=== PATIENT | male | born 1985 | race Two or more races ===

== ENCOUNTER 2017-02-21 07:14 | Emergency (ER) | payer OTHER ==
[2017-02-21 08:04] VITALS: BP 122/71; PULSE 90; TEMP 98.4; BMI 35.6
--- NOTE | 2017-02-21 08:34 | PDOC ---
History of Present Illness - General Chief Complaint: Pain Stated Complaint: RASH/FEVER/STOMACH PAIN Time Seen by Provider: 02/21/17 08:24 History Source: Patient - History of Present Illness Initial Comments: 02/21/17 11:10 Patient is a 31 y.o. male with a PMH of epilepsy (s/p R temporal lesion removal ; last seizure 2015) and asthma who presents with a 2 day h/o localized epigastric cramping abdominal pain with associated nausea but no vomiting, diarrhea/constipation. Patient denies any exacerbation/relief with PO intake but notes decreased appetite 2/2 to the pain. Patient also endorse some viral URI symptoms including sore throat and chills. Patient also c/o of multiple hyperpigmented/erythematous macules that are non-tender on his B/L UE and torso. Patient states the macules initially appeared last week and were relieved with Benadryl however they reappeared yesterday. Past History - Past Medical History Allergies/Adverse Reactions: Allergies Allergy/AdvReac Type Severity Reaction Status Date / Time shellfish derived Allergy Verified 02/21/17 07:42 Home Medications: Ambulatory Orders NK [No Known Home Medication] 02/21/17 Asthma: Yes COPD: No Seizures: Yes - Immunization History Immunization Up to Date: No - Suicide/Smoking/Psychosocial Hx Smoking Status: No Smoking History: Never smoked Have you smoked in the past 12 months: No Number of Cigarettes Smoked Daily: 0 Information on smoking cessation initiated: No Hx Alcohol Use: No Drug/Substance Use Hx: No Substance Use Type: Marijuana Hx Substance Use Treatment: No Review of Systems - Review of Systems Constitutional: Yes: Chills. No: Fever Respiratory: No: Shortness of Breath Cardiac (ROS): No: Chest Pain ABD/GI: Yes: Nausea. No: Constipated, Diarrhea, Vomiting : No: Burning, Dysuria All Other Systems: Reviewed and Negative *Physical Exam - Vital Signs Last Vital Signs Temp Pulse Resp BP Pulse Ox 98.4 F 90 16 122/71 97 02/21/17 07:43 02/21/17 07:43 02/21/17 07:43 02/21/17 07:43 02/21/17 07:43 - Physical Exam General Appearance: Yes: Nourished, Obese HEENT: positive: EOMI, CHERYL Neck: positive: Trachea midline, Supple Respiratory/Chest: positive: Lungs Clear Cardiovascular: positive: S1, S2 Gastrointestinal/Abdominal: positive: Normal Bowel Sounds, Soft. negative: Distended, Guarding, Rebound, Tenderness, Hernia, Mass Extremity: positive: Normal Capillary Refill, Normal Inspection Integumentary: positive: Normal Color, Dry, Warm Neurologic: positive: Fully Oriented, Alert ED Treatment Course - LABORATORY CBC & Chemistry Diagram: 02/21/17 09:10 02/21/17 09:10 Medical Decision Making - Medical Decision Making 02/21/17 11:13 Patient is a 31 y.o. male who presents to the ED c/o intermittent cramping epigastric pain. On PE patient is hemodynamically stable and non-toxic appearing. Clinical suspicion for biliary disease. Will obtain RUQ U/S to r/o cholecystitis and GI cocktail for pain. Reassess. 02/21/17 19:14 RUQ negative for acute cholecystitis but shows some fatty liver. Will give patient copy of CT scan with instruction to f/u with PCP and return precautions. Patient hemodynamically stable, tolerating PO intake and affirms understanding of discharge instructions. *DC/Admit/Observation/Transfer Diagnosis at time of Disposition: Viral gastritis - Discharge Dispostion Disposition: HOME Condition at time of disposition: Good Admit: No - Referrals - Patient Instructions Printed Discharge Instructions: DI for Gastritis Additional Instructions: Please follow up with your primary care physician for your abdominal pain. Return to the Emergency Department for any new/worsening/concerning symptoms. - Post Discharge Activity Forms/Work/School Notes: Back to Work
--- NOTE | 2017-02-21 08:52 | PDOC ---
Attending Attestation - Resident Resident Name: PabloAixa - ED Attending Attestation I have performed the following: I have examined & evaluated the patient, The case was reviewed & discussed with the resident, I agree w/resident's findings & plan, Exceptions are as noted - HPI HPI: 02/21/17 08:51 31y M pmhx seizure (sp L temporal lobe resection) presenst with complaint of sharp epgiastric pain for the past 2-3 days - seems to come for seconds, and gets better if he stretches - it is sharp, nonradiation, pt endorses mild nausea , without any vomiting, fever/chills - doesnot seem to get worse with dayo dintake though pt states he has not been eating much recently due to feeling under the weather with URI sypmtoms. pt also notes that he occasionally has these hyperpigmented/eruythemadous macules that show up on his arm/torso, back last week, took benadryl with resolution but a few days ago they popped up again. pt denies any fever/chills, these are not painful, they are not itchy. on exam pt is well appearing in no idstress cardiac exam: rrr, no m/r/g pulm: cta general: weall appearing, in no distress abd: soft nontender, neg murphies, no rebound/guarding ext: no pitting edmema noted. skin: occasional bruise noted on his wrist/arm, back, no signs of petiquei ddx epigsatric pain - gall stones, pancreatitis, consider acs - will obtain screening ekg, gastritis will treat with pepcid/maalox, will obtain gb US will ck lbas to r/o hematologic disease for his rash - Physicial Exam PE: 02/22/17 07:45 see above - Medical Decision Making 02/21/17 11:59 labs reviewed US shows no gall stones, +fatty liver will dc with pmd fu suspect his pain is musuclar in nature in setting of his mild cough Heart Score/ECG Review - ECG Impressions Comment:: 02/21/17 17:17 Twelve-lead EKG was performed and reviewed by me. There is normal sinus rhythm with a normal rate. Rate of 72 The axis is normal. The intervals are normal. There is normal R wave progression There are no ST or T wave abnormalities. Impression: Normal twelve-lead EKG
[2017-02-21 09:25] LABS: BASO % 0.6 % (0-2.0); EOS % 0.4 % (0-4.5); HEMATOCRIT 43.9 % (35.4-49); HEMOGLOBIN 14.5 GM/dL (11.7-16.9); LYMPH % 24.1 % (8-40); MCH 27.6 pg (25.7-33.7); MEAN CELL VOLUME 83.6 fl (80-96); MEAN PLT VOLUME 9.5 fl (7.5-11.1); MONO % 11.9 % (3.8-10.2); PLATELET COUNT 157 K/MM3 (134-434); RBC 5.25 M/mm3 (4.00-5.60); RDW 14.4 % (11.9-15.9); WHITE BLOOD COUNT 5.7 K/mm3 (4.0-10.0)
[2017-02-21] MEDS ORDERED: MAG HYDROX/AL HYDROX/SIMETH 355 ML ORAL.SUSP PO ONE (09:29)
[2017-02-21] MEDS ORDERED: FAMOTIDINE 20 MG/50 ML IVPB 20 MG in PREMIX 50 IVPB ONE (09:30)
[2017-02-21 09:55] LABS: ALBUMIN 3.9 g/dl (3.4-5.0); ANION GAP 9 (8-16); BILIRUBIN,TOTAL 0.7 mg/dL (0.2-1.0); BLOOD UREA NITROGEN 12 mg/dL (7-18); CALCIUM 8.1 mg/dL (8.5-10.1); CHLORIDE 106 mmol/L (98-107); CO2 23 mmol/L (21-32); CREATININE 0.8 mg/dL (0.7-1.3); GLUCOSE,RANDOM 102 mg/dL (74-106); LIPASE 86 U/L (73-393); POTASSIUM 3.8 mmol/L (3.5-5.1); SGOT/AST 40 U/L (15-37); SGPT/ALT 32 U/L (12-78); SODIUM 138 mmol/L (136-145); TOT PROT 7.6 g/dl (6.4-8.2)
[2017-02-21 09:57] LABS: ALK PHOS 69 U/L (45-117)
[2017-02-21] MEDS ORDERED: MAG HYDROX/AL HYDROX/SIMETH 30 ML UNIT-DOSE CUP ONE (11:29)
[2017-02-21] MEDS ORDERED: FAMOTIDINE 20 MG/50 ML IVPB 20 MG/50 ML MG IVPB ONE (11:30)
[2017-02-21] MEDS ORDERED: RANITIDINE HCL 150 MG TABLET (FP) PO ONE (11:34)
[2017-02-21] MEDS ORDERED: RANITIDINE HCL 150 MG TABLET (FP) ONE (11:35)
[2017-02-21] MEDS ORDERED: KETOROLAC TROMETHAMINE 60 MG/2 ML VIAL IM ONE (11:58)
--- NOTE | 2017-02-21 16:35 | EKG ---
Test Reason : Blood Pressure : / mmHG Vent. Rate : 072 BPM Atrial Rate : 072 BPM P-R Int : 130 ms QRS Dur : 086 ms QT Int : 404 ms P-R-T Axes : 043 068 035 degrees QTc Int : 442 ms NORMAL SINUS RHYTHM WITH SINUS ARRHYTHMIA NORMAL ECG WHEN COMPARED WITH ECG OF 18-MAY-2014 07:49, NO SIGNIFICANT CHANGE WAS FOUND BASELINE ARTIFACT Confirmed by ESTEFANY WALTON, CASSIE ([id number]) on 02/21/2017 4:35:16 PM Referred By: Confirmed By:CASSIE ALLISON MD
== END 2017-02-21 12:55 | disposition home or self-care (01) ==
LOC: JER 07:14
DX: K29.00 Acute gastritis without bleeding (principal); Z86.69 Personal history of other diseases of the nervous system and sense organs; R21 Rash and other nonspecific skin eruption
CPT/HCPCS: 36415; 76705-TC; 80053; 83690; 84484; 85025; 93005; 93010; 99282-25

== ENCOUNTER 2018-11-12 21:41 | Emergency (ER) | payer OTHER ==
[2018-11-12 22:05] VITALS: BP 199/94; PULSE 88; TEMP 99.6; BMI 35.6
[2018-11-12] MEDS ORDERED: IBUPROFEN 400 MG TABLET (FP) PO ONE ×2 (22:27→22:31)
--- NOTE | 2018-11-12 22:44 | PDOC ---
History of Present Illness - General Chief Complaint: Injury Stated Complaint: FALL Time Seen by Provider: 11/12/18 22:06 History Source: Patient Exam Limitations: Clinical Condition - History of Present Illness Initial Comments: 11/12/18 22:38 Patient with no significant past medical history presented with complaint of right lateral ankle and midfoot pain and swelling status post twisting ankle while playing basketball 2 hours ago. Patient reported he was trying to shoot a basket and twisted his right ankle. Reports increased pain to right ankle and foot with ambulation. Denies fall hitting head or loss of consciousness. Denies any other symptoms Occurred: reports: this evening Past History - Past Medical History Allergies/Adverse Reactions: Allergies Allergy/AdvReac Type Severity Reaction Status Date / Time shellfish derived Allergy Verified 02/21/17 07:42 Home Medications: Ambulatory Orders Ibuprofen 800 mg PO Q8H PRN #20 tablet 11/12/18 Asthma: Yes COPD: No Seizures: Yes - Immunization History Immunization Up to Date: No - Psycho Social/Smoking Cessation Hx Smoking Status: No Smoking History: Never smoked Have you smoked in the past 12 months: No Number of Cigarettes Smoked Daily: 0 Hx Alcohol Use: No Drug/Substance Use Hx: No Substance Use Type: Marijuana Hx Substance Use Treatment: No Review of Systems - Review of Systems Able to Perform ROS?: Yes Is the patient limited [place]er proficient: No Constitutional: No: Malaise, Weakness HEENTM: No: Symptoms Reported Respiratory: No: Symptoms reported Cardiac (ROS): No: Symptoms Reported ABD/GI: No: Symptoms Reported Musculoskeletal: Yes: Symptoms Reported, See HPI, Joint Swelling (right ankle), Muscle Pain (lateral aspect of right ankle) Integumentary: Yes: Symptoms Reported, Other (swelling to right midfoot) Neurological: No: Numbness, Paresthesia, Tingling All Other Systems: Reviewed and Negative *Physical Exam - Vital Signs Last Vital Signs Temp Pulse Resp BP Pulse Ox 99.6 F 88 18 199/94 H 95 11/12/18 22:03 11/12/18 22:03 11/12/18 22:03 11/12/18 22:03 11/12/18 22:03 - Physical Exam Comments: 11/12/18 22:41 GENERAL: Well developed, well nourished. Awake and alert in moderate acute distress. MUSCULOSKELETAL : moderate swelling to lateral aspect of right midfoot with mild swelling over lateral malleolus of right ankle. Moderate tenderness over lateral aspect of right midfoot and ankle. No bruising or ecchymosis to ankle foot. Negative anterior posterior drawer test of right ankle. SKIN: Warm and dry. Normal capillary refill. Moderate swelling over lateral malleolus and dorsum of right midfoot. No bruising no ecchymosis of foot or ankle. NEUROLOGICAL: Alert, awake, appropriate. No motor deficits in the lower extremities. Gait is normal without ataxia. PSYCHIATRIC: Cooperative. Good eye contact. Appropriate mood and affect. General Appearance: Yes: Nourished, Appropriately Dressed, Apparent Distress, Moderate Distress ED Treatment Course - RADIOLOGY Radiology Studies Ordered: Category Date Time Status ANKLE-RIGHT [RAD] Stat Radiology 11/12/18 22:07 Taken FOOT-RIGHT [RAD] Stat Radiology 11/12/18 22:29 Ordered - Medications Given in the ED: ED Medications Discontinued Medications Generic Name Dose Route Start Last Admin Trade Name Freq PRN Reason Stop Dose Admin Ibuprofen 800 mg 11/12/18 22:27 11/12/18 22:34 Motrin - PO 11/12/18 22:28 800 mg ONCE ONE Administration Medical Decision Making - Medical Decision Making 11/12/18 22:39 Patient with no significant past medical history presented with complaint of right lateral ankle and midfoot pain and swelling status post twisting ankle while playing basketball 2 hours ago. Patient reported he was trying to shoot a basket and twisted his right ankle. Reports increased pain to right ankle and foot with ambulation. Denies fall hitting head or loss of consciousness. Denies any other symptoms Exam significant for moderate swelling to lateral aspect of right midfoot with mild swelling over lateral malleolus of right ankle. Moderate tenderness over lateral aspect of right midfoot and ankle. No bruising or ecchymosis to ankle foot. Negative anterior posterior drawer test of right ankle. Symptoms likely ankle and foot sprain versus less likely fracture. X-ray right ankle and foot ordered to rule out fracture. Ibuprofen 800 mg p.o. ordered for pain 11/12/18 23:22 X-ray of left ankle and foot shows no acute fracture dislocation. Patient left ankle and foot placed in a cast after ankle and foot wrapped with Imtiaz bandage. Crutches provided to keep weight off left foot. Postop shoe given to patient. Prescription for Motrin sent as needed for pain. Patient stable for discharge with orthopedics follow-up as needed Discharge - Discharge Information Problems reviewed: Yes Clinical Impression/Diagnosis: Right ankle sprain Qualifiers: Encounter type: initial encounter Involved ligament of ankle: unspecified ligament Qualified Code(s): S93.401A - Sprain of unspecified ligament of right ankle, initial encounter Right foot sprain Qualifiers: Encounter type: initial encounter Qualified Code(s): S93.601A - Unspecified sprain of right foot, initial encounter Condition: Stable Disposition: HOME - Admission No - Additional Discharge Information Prescriptions: Ibuprofen 800 mg PO Q8H PRN #20 tablet PRN Reason: pain - Follow up/Referral Referrals: Alexandro Knox DO [Staff Physician] - - Patient Discharge Instructions Patient Printed Discharge Instructions: DI for Ankle Sprain, DI for Foot Sprain Additional Instructions: X-ray of right foot and ankle shows no acute fracture or dislocation. Symptoms likely from ankle and foot sprain. Use provided crutches to keep weight off right foot for the next 2 days. Keep right leg elevated and apply cold compress to swelling today and switch to hot compress tomorrow as needed for swelling. To prescribe ibuprofen as needed for pain. Use provided Imtiaz bandage and Aircast to support right ankle. Follow-up referred to orthopedics if no improvement in 4 days - Post Discharge Activity Work/Back to School Note: Back to Work
== END 2018-11-12 23:32 | disposition home or self-care (01) ==
LOC: JERFT 21:41
DX: S93.401A Sprain of unspecified ligament of right ankle, initial encounter (principal); S93.601A Unspecified sprain of right foot, initial encounter; X50.1XXA Overexertion from prolonged static or awkward postures, initial encounter; Y93.67 Activity, basketball; Y92.310 Basketball court as the place of occurrence of the external cause; Y99.8 Other external cause status; Z91.013 Allergy to seafood
CPT/HCPCS: 73610-TC-RT-FY; 73630-TC-RT-FY; 99282-25

== ENCOUNTER 2020-05-20 16:47 | Emergency (ER) | payer OTHER ==
[2020-05-20 17:27] VITALS: BP 150/84; PULSE 93; TEMP 98; BMI 31.6
[2020-05-20] MEDS ORDERED: DIPHTH,PERTUSS(ACELL),TET 0.5 ML DISP.SYRIN IM ONE ×2 (17:33→18:07)
[2020-05-20] MEDS ORDERED: IBUPROFEN 600 MG TABLET (FP) PO ONE ×2 (18:19→18:21)
== END 2020-05-20 18:25 | disposition home or self-care (01) ==
LOC: JERFT 16:47 → JER 16:47 → JERFT 18:25
PROC: 3E0234Z Introduction of Serum, Toxoid and Vaccine into Muscle, Percutaneous Approach (ICD-10-PCS; principal; 2020-05-20)
DX: S83.91XA Sprain of unspecified site of right knee, initial encounter (principal); R26.81 Unsteadiness on feet
CPT/HCPCS: 73562-TC-RT-FY; 90715; 99284-25

== ENCOUNTER 2021-03-25 16:36 | Emergency (ER) | payer OTHER ==
[2021-03-25 17:04] VITALS: BP 144/98; PULSE 81; TEMP 99.2; BMI 33.0
[2021-03-25] MEDS ORDERED: levETIRAcetam 500 MG/5 ML INJECTION VIAL IVPB ONE ×2 (17:05→17:08)
[2021-03-25] MEDS ORDERED: LORazepam 2 MG/ML SDV VIAL IVPUSH ONE (17:15)
[2021-03-25 17:50] LABS: BASO % 0.4 % (0-2.0); EOS % 0.9 % (0-4.5); HEMATOCRIT 41.7 % (35.4-49); HEMOGLOBIN 14.1 GM/dL (11.7-16.9); LYMPH % 14.3 % (8-40); MCH 29.3 pg (25.7-33.7); MCHC 33.8 g/dl (32.0-35.9); MEAN CELL VOLUME 86.7 fl (80-96); MEAN PLT VOLUME 10.6 fl (7.5-11.1); MONO % 11.8 % (3.8-10.2); NEUT % 72.6 % (42.8-82.8); PLATELET COUNT 118 10^3/uL (134-434); RBC 4.81 M/mm3 (4.00-5.60); RDW 13.4 % (11.9-15.9); WHITE BLOOD COUNT 6.4 K/mm3 (4.0-10.0)
[2021-03-25 17:51] LABS: BLOOD UREA NITROGEN 14.8 mg/dL (7-18); CALCIUM 9.1 mg/dL (8.5-10.1); MAGNESIUM 1.8 mg/dL (1.8-2.4)
[2021-03-25 17:52] LABS: ALBUMIN 3.6 g/dl (3.4-5.0)
[2021-03-25 17:54] LABS: CREATININE 0.8 mg/dL (0.55-1.3); PHOSPHOROUS 2.2 mg/dL (2.5-4.9)
[2021-03-25 17:56] LABS: BILIRUBIN,TOTAL 0.8 mg/dL (0.2-1); TOT PROT 6.6 g/dl (6.4-8.2)
[2021-03-25 18:33] LABS: ACTIVATED PTT 47.7 SECONDS (25.2-36.5); INR 1.19 (0.83-1.09); PROTHROMBIN TIME (PATIENT) 13.7 SEC (9.7-13.0)
== END 2021-03-25 22:37 | disposition short-term general hospital (02) ==
LOC: JER 16:36
PROC: 3E033GC Introduction of Other Therapeutic Substance into Peripheral Vein, Percutaneous Approach (ICD-10-PCS; principal; 2021-03-25)
PROC: 3E033GC Introduction of Other Therapeutic Substance into Peripheral Vein, Percutaneous Approach (ICD-10-PCS; 2021-03-25)
DX: G04.89 Other myelitis (principal)
CPT/HCPCS: 36415; 70450-TC; 71045-TC-FY; 80053; 80164; 83735; 84100; 85025; 85610; 85730; 93005; 93010; 99285-25

== ENCOUNTER 2022-09-02 12:01 | Emergency (ER) | payer OTHER ==
[2022-09-02 12:05] VITALS: BP 135/73; PULSE 78; RESP 17; TEMP 97.9; BMI 36.3
[2022-09-02] MEDS ORDERED: diphenhydrAMINE HCL 25 MG CAPSULE (FP) PO ONE (12:47)
[2022-09-02] MEDS ORDERED: DEXAMETHASONE SOD PHOSPHATE 10 MG/1 ML VIAL IM ONE (12:47)
[2022-09-02] MEDS ORDERED: DEXAMETHASONE 4 MG TABLET (FP) PO ONE (12:48)
[2022-09-02] MEDS ORDERED: LORATADINE 10 MG TABLET PO ONE (12:56)
[2022-09-02] MEDS ORDERED: DEXAMETHASONE SOD PHOSPHATE 10 MG/1 ML VIAL ONE (12:57)
[2022-09-02] MEDS ORDERED: LORATADINE 10 MG TABLET ONE (12:57)
== END 2022-09-02 13:11 | disposition home or self-care (01) ==
LOC: JERFT 12:01
DX: R21 Rash and other nonspecific skin eruption (principal)
CPT/HCPCS: 99283-25

== ENCOUNTER 2022-10-16 12:35 | Emergency (ER) | payer OTHER ==
[2022-10-16 12:59] VITALS: BP 101/57; PULSE 55; RESP 18; TEMP 98.3; BMI 34.7
[2022-10-16] MEDS ORDERED: DIVALPROEX SODIUM 250 MG TABLET E.C. PO ONE (14:16)
[2022-10-16] MEDS ORDERED: SODIUM CHLORIDE 0.9% 500 ML INFUS.BAG IV ONE (14:21)
[2022-10-16 14:29] LABS: BASO % 0.8 % (0-2.0); HEMATOCRIT 38.7 % (35.4-49); HEMOGLOBIN 12.7 GM/dL (11.7-16.9); LYMPH % 14.3 % (8-40); MCHC 32.7 g/dl (32.0-35.9); MEAN CELL VOLUME 85.8 fl (80-96); MEAN PLT VOLUME 10.6 fl (7.5-11.1); MONO % 7.9 % (3.8-10.2); PLATELET COUNT 135 10^3/uL (134-434); RBC 4.52 M/mm3 (4.00-5.60); RDW 14.2 % (11.9-15.9); WHITE BLOOD COUNT 8.8 K/mm3 (4.0-10.0)
[2022-10-16 15:07] LABS: POTASSIUM 3.7 mmol/L (3.5-5.1)
[2022-10-16 15:09] LABS: CALCIUM 8.4 mg/dL (8.5-10.1)
[2022-10-16 15:10] LABS: ALBUMIN 3.4 g/dl (3.4-5.0); BLOOD UREA NITROGEN 18.4 mg/dL (7-18)
[2022-10-16 15:15] LABS: BILIRUBIN,TOTAL 0.8 mg/dL (0.2-1); TOT PROT 6.1 g/dl (6.4-8.2)
[2022-10-16] MEDS ORDERED: DIVALPROEX SODIUM 250 MG TABLET E.C. ONE (15:39)
== END 2022-10-16 16:54 | disposition home or self-care (01) ==
LOC: JER 12:35
DX: G40.909 Epilepsy, unspecified, not intractable, without status epilepticus (principal); R11.0 Nausea
CPT/HCPCS: 36415; 80053; 80164; 82962; 85025; 93005; 93010; 99284-25